=== PATIENT | male | born 1960 | race American Indian/Alaskan Native ===

== ENCOUNTER 2018-03-31 00:42 | Emergency (ER) | payer OTHER ==
[2018-03-31 00:59] VITALS: TEMP 97.8; O2SAT 96
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
[2018-03-31 05:49] VITALS: BP 137/76; PULSE 62; RESP 14
== END 2018-03-31 06:17 | disposition home or self-care (01) ==
LOC: H.ER 00:42
DX: G40.909 Epilepsy, unspecified, not intractable, without status epilepticus (principal); I10 Essential (primary) hypertension; Z59.0 Homelessness